=== PATIENT | male | born 1990 | race Two or more races ===

== ENCOUNTER 2016-07-21 12:30 | Emergency (ER) | payer OTHER ==
[2016-07-21 12:45] VITALS: O2SAT 96
--- NOTE | 2016-07-21 12:59 | UCPHY ---
H & P Time Seen by Provider: 07/21/16 12:44 Patient Type: New HPI/ROS: HPI Left ankle injury. 25-year-old male by private vehicle. This patient reports that yesterday he was walking in his driveway when he slipped in inverted his left ankle. He complains of swelling and some pain when ambulating to the left lateral aspect of his ankle. He is able to bear weight on the left ankle without significant discomfort. No other injury or complaint. ROS: Constitutional: No fever, no chills. No weakness. Musculoskeletal: No back pain. No neck pain. As above. Denies other extremity pain.. Skin: No lacerations or abrasions. Neurological: No headache. No focal weakness or altered sensation. Past medical history: Denies. Social history: Here by himself. Physical Exam: General Appearance: Alert, no distress. This patient is responding to questions appropriately and in full sentences. This patient appears well- hydrated and well-nourished. Eyes: Pupils equal and round no pallor or injection. No lid edema, erythema or injection. Left ankle exam: Diffuse swelling over the lateral malleolus. No associated ecchymosis, erythema, edema, warmth. No significant bony tenderness on palpation to this area. The bony aspects of the left foot are nontender on palpation. The medial malleolus is nontender and without soft tissue changes. The left foot is neurovascularly intact. Neurological: Motor sensory function is grossly intact. Cranial nerves are normal. Gait is normal. Skin: Warm and dry, no rashes. Extremities are symmetrical except noted above. All joints range without pain or impingement except noted above. Psychiatric: No agitation. No depression. Database: EKG: Imaging: Left ankle x-ray series: Negative for fracture, subluxation, dislocation. Interpreted by me. Procedures: Emergency department course: After my evaluation, the patient was sent for x-rays of the left ankle. He declines pain medication. 2:00 p.m., patient re-evaluated. Resting comfortably at this time. Results of x-rays were discussed with him. He was fitted with an orthopedic shoe. Plan is for follow-up through his primary care physician or information assurance specialist in 2-3 days for re-evaluation. Return to Urgent Care precautions were discussed with him. All of his questions were answered. He was discharged from Urgent Care in good condition. Differential Diagnosis: The differential diagnosis on this patient includes but is not limited to left ankle sprain. Fracture, subluxation, dislocation of the left ankle unlikely. This represents a partial list of diagnoses considered. These considerations are based on history, physical exam, past history, reassessment and diagnostic testing. Smoking Status: Never smoked Constitutional: Initial Vital Signs Temperature (C) 37.2 C 07/21/16 12:41 Heart Rate 53 L 07/21/16 12:41 Respiratory Rate 16 07/21/16 12:41 Blood Pressure 128/79 H 07/21/16 12:41 O2 Sat (%) 96 07/21/16 12:41 O2 Delivery Mode Room Air Allergies/Adverse Reactions: No Known Allergies Allergy (Unverified 07/21/16 12:45) Home Medications: Medication Instructions Recorded NK [No Known Home Meds] 07/21/16 Departure - Departure Disposition: Home, Routine, Self-Care Clinical Impression: Left ankle sprain Condition: Good Instructions: Ankle Sprain (ED) Additional Instructions: Read and follow provided instructions. Follow-up with your workman's Comp physician or your information assurance specialist in 2- 3 days for re-evaluation. Ibuprofen dosin mg every 6 hours with meals for the next 3 days only. Return to the emergency department or urgent care for worsening pain, swelling, discoloration, weakness or altered sensation or other serious concerns. Work Related Injury: Date of Injury (if different from Date of Service): 07/20/2016. Your work restrictions, if any, last only until the next business day. Formal evaluation for work restrictions beyond one day must be arranged through your employer's workman's compensation provider. Restrictions are noted below: Return to limited work today. No prolonged standing or walking. Referrals: NONE *PRIMARY CARE P,. [Primary Care Provider] - As per Instructions Katie Cabrera MD [Medical Doctor] - As per Instructions - PQRS PQRS Measurement: Not applicable.
[2016-07-21 14:08] VITALS: BP 122/74; PULSE 81; RESP 18; TEMP 98.2
--- NOTE | 2016-07-21 14:16 | DX ---
Left Ankle, 3 Views, 1:43 p.m. Clinical History: 25-year-old male with pain after twisting his ankle yesterday. Comparison Study: None. Findings: There is soft tissue swelling noted laterally. There is no acute fracture or mortise disrup tion. The talar dome is well-contoured. There are small benign bone islands associated with the dista l anterior tibia and the central calcaneus. The subtalar joint is normal. There may be a small anteri or tibiotalar ankle joint effusion. The base of the fifth metatarsal is unremarkable. Impression: Mild lateral ankle sprain.
== END 2016-07-21 14:10 | disposition home or self-care (01) ==
LOC: CED 12:30
DX: S93.402A Sprain of unspecified ligament of left ankle, initial encounter (principal); W18.40XA Slipping, tripping and stumbling without falling, unspecified, initial encounter
CPT/HCPCS: 73610-PO; G0463-PO; L4386